=== PATIENT | male | born 1960 | race Caucasian/White ===

== ENCOUNTER 2024-04-10 12:28 | Inpatient (IN) | payer MEDICARE, SELFPAY ==
[2024-04-09] VITALS (10 sets, daily range): BP systolic 138–185; BP diastolic 73–108; BMI 31.3; BMI 31.1
[2024-04-09 17:19] LABS: % Basophils 0.2 % (0-2); % Immature Granulocytes 0.4 % (0-0.5); % Lymphocytes 4.5 % (20.5-51.1); % Monocytes 8.5 % (1.7-9.3); % Neutrophils 86.4 % (42.2-75.2); Absolute Immature Granulocytes 0.1 10^3/uL (0-0.05); Absolute Lymphocytes 0.8 10^3/uL (1.2-3.4); Absolute Monocytes 1.5 10^3/uL (0.1-0.6); Absolute Neutrophils 15.3 10^3/uL (1.4-6.5); Hemoglobin 14.2 g/dL (13.0-18.0); Mean Corp Hgb Conc. 36.4 g/dL (33.0-37.0); Mean Corpuscular Volume 85.2 fL (80.0-94.0); Mean Platelet Volume 10.2 fL (7.4-10.4); Nucleated Red Blood Cells % 0 % (-); Platelet Count 342 10^3/uL (130-400); Red Blood Cell Count 4.58 10^6/uL (4.70-6.10); Red Cell Dist. Width 12.8 % (11.5-14.5); White Blood Cell Count 17.7 10^3/uL (4.8-10.8)
[2024-04-09] MEDS: ZOFRAN 4 MG IV ×3 (17:29→21:27)
[2024-04-09] MEDS: PROTONIX IV 40 MG IV (17:31)
[2024-04-09] MEDS: DILAUDID 1 MG IV ×3 (17:32→23:07)
[2024-04-09 17:33] LABS: ALT (SGPT) 19 U/L (0-50); AST (SGOT) 25 U/L (17-59); Albumin 4.7 g/dl (3.5-5.0); Alkaline Phosphatase 78 U/L (38-126); Blood Urea Nitrogen 14 mg/dl (9-20); Calcium 10.4 mg/dl (8.4-10.2); Carbon Dioxide 20 mmol/L (22-30); Chloride 103 mmol/L (98-107); Estimated Creatinine Clearance 82 ml/min; Glucose 125 mg/dl (70-99); Lipase 260 U/L (23-300); Potassium 4.3 mmol/L (3.5-5.1); Sodium 138 mmol/L (135-145); Total Bilirubin 1.3 mg/dl (0.2-1.3); Total Protein 7.6 g/dl (6.3-8.2); eGFR > 60.00
[2024-04-09 17:38] LABS: Troponin I 0.014 ng/ml
[2024-04-09] MEDS: LR 1000 IV (19:16)
--- NOTE | 2024-04-09 19:16 | ED.GENMED ---
History of Present Illness
General
Chief Complaint: Abdominal Symptoms
Source: patient and family
Exam Limitations: none
Time Seen by Provider: 04/09/24 16:39
Nursing documentation reviewed up to this point in time: agreed with
History of Present Illness
History of Present Illness:
63 y/o M
ho chronic back pain on tramadol
RA on methotrexate
here with 2 days epigastirc pain that comes in waves of severe spasm with n/v
hasn't really eaten much in 2 days
pain is now constantw ith freuqent severe pain
no vomitign blood, black stool, cp, sob, diarrhea
dad had h/o pancreiatis
no alcohol abuse
Past History
Past History
ED Past Medical History: Other (Arthritis)
ED Past Surgical History: Orthopedic
Social History
Tobacco: Non-smoker
Alcohol: None
Drug: None
Personal:
Living: with family
Review of Systems
Review of Systems
Allergies reviewed?: Yes
All Other Systems: Not applicable
Phy Exam
Physical Exam
Physical Exam:
GENERAL: Alert , vomtiing, uncomfortable, moving frquently in the stretcher
EYE: pupils equal and reactive
NECK: Supple
ENT: o/p clr, dry mouth
CARDIAC: Regular rate and rhythm .
LUNGS: Clear breath sounds bilaterally, no acute respiratory distress, no wheezes/rales/rhonchi
ABDOMEN: Soft, moderate LUQ tenderness and epigastric tenderness;, no r/g, no cvat, normal bowel sounds
NEUROLOGICAL: Alert and oriented, no focal neuro deficits
SKIN: Warm and dry, skin intact.
MUSCULOSKELETAL: No edema, well perfused.
PSYCH: Normal and appropriate interaction.
Course
Orders/Labs/Results
Orders:
Orders
04/09/24 17:05
EKG [Electrocardiogram (*1)] Urgent
Reason for Study: Abdominal Pain
EKG- Treatment ONCE
IV Insert/Care/Rem.- Treatment PRN
04/09/24 17:06
Complete Blood Count/With Diff Urgent
Comprehensive Metabolic Panel Urgent
Lipase Urgent
Troponin I Urgent
04/09/24 17:22
HYDROmorphone [Dilaudid] 1 mg IV NOW STA
Ondansetron Injectable [Zofran] 4 mg IV NOW STA
Pantoprazole [Protonix IV] 40 mg IV NOW STA
04/09/24 17:38
CT Abd/Pel (IV only)-DH only Urgent
Comment:
Reason For Exam: severe upper abd pain, vomiting
04/09/24 18:27
Ondansetron Injectable [Zofran] 4 mg IV NOW STA
04/09/24 18:28
Ondansetron Injectable [Zofran] 4 mg .ROUTE .STK-MED ONE
04/09/24 18:29
HYDROmorphone [Dilaudid] 1 mg .ROUTE .STK-MED ONE
04/09/24 18:32
HYDROmorphone [Dilaudid] 1 mg IV NOW STA
04/09/24 19:14
Lactated Ringers [Lr] 1,000 ml IV BOLUS
04/09/24 19:40
Sucralfate Suspension [Carafate Suspension] 1 gm PO NOW STA
04/09/24 19:54
Admit/Transfer Patient As Directed
Co-Sign Provider:
Level of Care: Observation services
Assign to:: Medical/Surgical
Physician / Group: hospitalist
Diagnosis: duodenitis
PRN Pain Medication Management As Directed
May give lesser potent ordered pain med per pt: Yes
preference::
Protocol:: Medication orders for pain may be administered in a
manner that supports deferring to patient preference
when the pt is:
- Requesting an ordered lesser potent pain medication.
Least to most potent pain medications are defined
as: acetaminophen < NSAID < tramadol < opioids
(morphine, oxycodone, hydromorphone).
- Requesting a lesser dose of the same medication IF
ORDERED.
- Requesting a less intrusive route of administration
if both routes are prescribed by the provider (PO <
IV).
04/09/24 19:55
Code Status As Directed
Resuscitation Status: Full Code
04/09/24 21:21
Mag Hydrox/Al Hydrox/Simeth [Maalox] 30 ml PO QIDPRN PRN
Morphine Sulfate 2 mg IV Q4HPRN PRN
Ondansetron Injectable [Zofran] 4 mg IV Q6HPRN PRN
04/09/24 21:25
Morphine Sulfate 2 mg .ROUTE .STK-MED ONE
Ondansetron Injectable [Zofran] 4 mg .ROUTE .STK-MED ONE
04/09/24 22:00
Flush (0.9% Sodium Chloride) [Flush (Nss)] See Dose Instructions IV PER PROTOCOL
Tamsulosin [Flomax] 0.4 mg PO HS
04/09/24 22:06
Acetaminophen [Tylenol] 650 mg PO Q4HPRN PRN
Lactated Ringers [Lr] 1,000 ml IV 150 mls/hr
Sucralfate [Carafate] 1 gram PO ACHS
04/09/24 22:06
H. pylori Antigen, Fecal [S] Routine
Activity As Directed
Activity Level: With Assistance
Pneumatic Compression Sleeves As Directed
Type: Knee high
Stool for occult blood [Hemetest Stools] As Directed
Vital Signs As Directed
Frequency: Per unit guidelines
DX Deep Vein Thrombosis Video Routine
04/09/24 23:01
HYDROmorphone [Dilaudid] 1 mg IV NOW STA
04/10/24 01:37
Diphenhydramine [Benadryl] 25 mg IV NOW STA
04/10/24 04:14
HYDROmorphone [Dilaudid] 1 mg IV Q4HPRN PRN
04/10/24 06:44
Complete Blood Count/No Diff IN AM
Comprehensive Metabolic Panel Routine
Direct Bilirubin Routine
Hepatitis C Antibody IN AM
Lipase IN AM
Lipid Profile [Cardiovascular Evaluation] IN AM
Magnesium IN AM
04/10/24 08:00
0.9% Sodium Chloride [Nss (Preservative Free)] 10 ml IV BID
Loratadine [Claritin] 10 mg PO DAILY
Pantoprazole [Protonix IV] 40 mg IV BID
04/10/24 11:32
HYDROmorphone [Dilaudid] 1 mg IV Q3HPRN PRN
04/10/24 12:07
HydrALAZINE [Apresoline] 10 mg IV Q6HPRN PRN
04/10/24 12:26
GASTROINTESTINAL CONSULT Routine
Consulting Provider: Casandra Huang
Was physician already notified: Yes
Reason for consult: Epigastric pain, Gastritis/PUD/duodenitis?
Abnormal Lab Results
04/09/24 04/10/24
17:06 06:44
WBC 17.7 H 10^3/uL 18.2 H 10^3/uL
(4.8-10.8) (4.8-10.8)
RBC 4.58 L 10^6/uL 4.14 L 10^6/uL
(4.70-6.10) (4.70-6.10)
Hct 37.5 L %
(39.0-52.0)
MCH 31.6 H pg
(27.0-31.0)
Abs Immat Gran (auto) 0.1 H 10^3/uL
(0-0.05)
Absolute Neuts (auto) 15.3 H 10^3/uL
(1.4-6.5)
Absolute Lymphs (auto) 0.8 L 10^3/uL
(1.2-3.4)
Absolute Monos (auto) 1.5 H 10^3/uL
(0.1-0.6)
Neutrophils % 86.4 H %
(42.2-75.2)
Lymphocytes % 4.5 L %
(20.5-51.1)
Carbon Dioxide 20 L mmol/L
(22-30)
Glucose 125 H mg/dl 109 H mg/dl
(70-99) (70-99)
Calcium 10.4 H mg/dl
(8.4-10.2)
Total Cholesterol 217 H mg/dl
(50-199)
04/10/24 06:44
04/10/24 06:44
Vital Signs
Initial and Last Documented VS:
Initial Vital Signs
Temp Pulse Resp BP Pulse Ox
98.1 F 65 18 158/99 98
04/09/24 16:23 04/09/24 16:23 04/09/24 16:23 04/09/24 16:23 04/09/24 16:23
Last Documented Vital Signs
Temp Pulse Resp BP Pulse Ox
100 F 66 18 150/73 97
04/11/24 06:55 04/11/24 06:55 04/11/24 06:55 04/11/24 06:55 04/11/24 06:55
MDM/Problems Addressed
Differential Diagnosis Includes:
pancreatitis, gastritis, PUD, less likely ACS
MDM/Problems Addressed:
63 y/o M
no chronic alcohol
here with 2 days of epigsatric pain, nausea/vomiting with most anything he eat/s drinks
having spasm like pain in his LUQ
dad had h/o pancreatitis
pt doesn' thave any RF otherwise
no hematemesis
no fever/chills
pt is dry heaving, uncomfortable
mod upper abd tendenrses
ekg nonischemic
lipase normal
leukocytosis left shift 17 which couldbe related to vomiting but pt had CT scan showing duodenitis vs. pancreatitis
will admit for ivf, pain control; has required severl rounds of meds
*Critical Care Note
Total Time (30-74mins, 75-104mins- exclusive of procedures): Not Applicable
ED Attending Note
-
Portions of this chart may have been created with voice recognition software.� Occasional wrong word or��sound alike� substitutions may have occurred due to the inherent limitations of voice recognition software.
Discharge Plan
Departure
Patient Disposition: Admit
Date of Disposition: 04/09/24
Time of Disposition: 19:14
Admit to: Med/Surg
Presentation/result/management discussed w/ accepting MD/DO: Hospitalist
Condition: Fair
Covid-19: Not Applicable
Discharge Problem:
Pancreatitis, Duodenitis
Interventions
Interventions:
*Risk Screen - Suicide Last Done: 04/09/24 16:23
*General Assessment Last Done: 04/09/24 16:23
*Neglect/Abuse Screening Last Done: 04/09/24 16:23
ED- Fall Risk Assessment Last Done: 04/09/24 19:04
*ED COVID-19 Vaccine History Last Done: 04/09/24 17:00
*Nursing Disposition Last Done: 04/09/24 22:00
TQ-Wbemmz-Pbdovpcigt Assessment Last Done: 04/09/24 19:04
Discharge Date and Time
Discharge Date/Time: 04/09/24 22:34
--- NOTE | 2024-04-09 19:41 | HPS.HSE ---
Family Physician
-
Family Physician: Nehemiah Monsalve
Chief Complaint
-
Epigastric abdominal pain nausea or vomiting
History of Present Illness
This is a 63-year-old male with past medical history of rheumatoid arthritis on methotrexate, BPH and chronic back pain who presents to the emergency department with 2 days of severe epigastric pain and spasms.
Patient reports being generally healthy and in usual state of health up until 2 days ago. Just prior to that he noticed very tach semiformed stool which was unusual for him. He then soon after developed severe epigastric pain that radiates to the
bilateral upper quadrants but not to the back. It was associated with nonbilious and nonbloody emesis. He has not had any bowel movement since then and has not noticed any bloody stools. Patient reports constant known waning pain. He reports
that he is not unable to tolerate any p.o. due to intermediate nausea and vomiting with any p.o. intake. Patient denies any significant NSAID use. He takes he takes 1 dose of ibuprofen occasionally and slightly not every day. He takes tramadol
and Tylenol for his back pain and arthritis. He has been on methotrexate for years and has been no recent changes in the dose. He denies any alcohol use which he quit several years ago. He denies tobacco use. He denies any prior history of
gallstones. He reports family history of pancreatitis as well as stomach ulcers and father.
In the Emergency Department the patient was afebrile blood pressure was 150/70 with a pulse of 61. He was satting 90% on room air. He had a ECG which showed a normal sinus rhythm at a rate of 73 no ischemic changes. Troponin was negative. He had
a white count of 17,000 with a normal hemoglobin and platelet count. Chemistries were within normal limits with normal LFTs and normal lipase. The CT of the abdomen pelvis shows duodenitis with likely secondary pancreatitis or pancreatic
inflammation.
Medical History
Past Medical History
Past Medical History: Reports Other (Rheumatoid arthritis, BPH, chronic back pain)
Past Surgical History: Reports None
Social History
Tobacco: Non-smoker
Alcohol: Former
Personal:
Living: With Family
Employment: Employed
Family History
Family History: Other (Pancreatitis)
Allergies / Home Medications
Allergies reflects when Allergies were last updated in [employer]
Home Medications with original date entered in [employer]
Allergy/Medication List:
Allergies
Allergy/AdvReac Type Severity Reaction Status Date / Time
No Known Allergies Allergy Verified 04/09/24 16:23
Home Medications
Lactobac no.2-Bifidobac no.1-S. thermo 112.5 billion cell capsule (Visbiome) 1 cap PO DAILY 04/09/24
acetaminophen 500 mg tablet (Tylenol Extra Strength) 1,000 mg PO Q6HPRN PRN moderate pain 04/09/24
fexofenadine 180 mg tablet 180 mg PO DAILY 04/09/24
leucovorin calcium 5 mg tablet 15 mg PO SA 04/09/24
methotrexate sodium 2.5 mg tablet 20 mg PO SA 04/09/24
sildenafil 100 mg tablet 100 mg PO DAILYPRN PRN ed 04/09/24
tamsulosin 0.4 mg capsule 0.4 mg PO HS 04/09/24
tramadol 50 mg tablet 100 mg PO Q6HPRN PRN moderate pain 04/09/24
Review of Systems
-
History Source: Patient
Constitutional: Reports No Symptoms
EENT: Reports No Symptoms
Respiratory: Reports No Symptoms
Cardiac: Reports No Symptoms
Abdomen/GI: Reports Abdominal Pain, Nausea and Vomiting
: Reports No Symptoms
Musculoskeletal: Reports No Symptoms
Skin: Reports No Symptoms
Neurological: Reports No Symptoms
Endocrine: Reports No Symptoms
Hematologic/Lymphatic: Reports No Symptoms
Psych: Reports No Symptoms
Physical Exam
Vital Signs
Vital Signs
Temp Pulse Resp BP Pulse Ox
97.9 F 61 20 156/73 98
04/09/24 19:04 04/09/24 19:04 04/09/24 19:04 04/09/24 19:04 04/09/24 19:04
Physical Exam
General: Well Developed, Well Nourished, No Apparent Distress and Comfortable
HEENT: NormoCephalic, Anicteric, Moist mucous membranes and Atraumatic
Respiratory: Clear
Cardiac: S1/S2 and Regular Rhythm
Breast: Deferred by me
GI: Soft, Non Distended, Normal Bowel Sounds and Tender
Rectal: Deferred by Provider
Musculoskeletal: No Clubbing, No Cyanosis and No Edema
Skin: Warm
Neuro: AO x 3
Hematologic/Lymphatic: No Lymphadenopathy
Psych: Calm
Laboratory Results
-
04/09/24 17:06
04/09/24 17:06
Laboratory Results
Total Bilirubin 1.3 mg/dl (0.2-1.3) 04/09/24 17:06
AST 25 U/L (17-59) 04/09/24 17:06
ALT 19 U/L (0-50) 04/09/24 17:06
Alkaline Phosphatase 78 U/L (38-126) 04/09/24 17:06
Troponin I 0.014 ng/ml 04/09/24 17:06
Lipase 260 U/L (23-300) 04/09/24 17:06
Data Reviewed
-
CT Scan: Report Reviewed by me
Medical Tests (Nuc Med, Echo, EKG etc): Image Personally Visualized and interpreted
Lab Data: Labs Reviewed by me
Old Records: Reviewed
Impression/Plan
-
IMPRESSION:
63 y.o h/o RA on methotrexate presenting to ED with acute onset epigastric pain, nausea and vomiting. Constant, no relieving factors. H/O black stools prior to onset but non-since. No ETOH or NSAID use. No h/o stones. Labs with leukocytosis but
otherwise unremarkable. Normal lipase, lfts. CT A/P c/w mild focal pancreatitis and or duodenitis. No eosinophilia.
PLAN:
1. Abdominal pain - Suspect duodenitis vs ulcer rather than acute pancreatitis for which no obvious etiology is evident. Episode of black stools also suggest duodenal/gastric pathology. He is uncomfortable but non-toxic. HD stable and Hgb within
normal limits.
- admit to med/surg obs
- NPO for now except sips
- PPI IV bid. IV fluids and pain control with narcs
- carafate, maalox prn
- guaiac stools
- GI consultation tomorrow if no improvement
2. BPH
- continue tamsulosin
3. RA
- holding methotrexate till next week's dose
DVT PPX - SCDs
Code Status - Full Code
[2024-04-09] MEDS: MORPHINE SULFATE 2 MG IV (21:26)
[2024-04-09] MEDS: FLOMAX 0.4 MG PO (21:27)
[2024-04-09] MEDS: CARAFATE SUSPENSION 1 GM PO (21:27)
[2024-04-09] MEDS: CARAFATE 1 GRAM PO (22:34)
[2024-04-09] MEDS: LR IV (22:47)
[2024-04-10] MEDS: MORPHINE SULFATE 2 MG IV (01:26)
[2024-04-10] MEDS: BENADRYL 25 MG IV (01:45)
[2024-04-10] MEDS: ZOFRAN 4 MG IV ×3 (04:20→18:20)
[2024-04-10] MEDS: DILAUDID 1 MG IV ×6 (04:20→21:30)
[2024-04-10] MEDS: MAALOX 30 ML PO ×2 (04:34→11:17)
[2024-04-10 07:24] VITALS: BP 176/90
[2024-04-10] MEDS: CARAFATE 1 GRAM PO ×3 (07:31→16:21)
[2024-04-10] MEDS: CLARITIN 10 MG PO (07:35)
[2024-04-10] MEDS: PROTONIX IV 40 MG IV ×2 (07:36→20:26)
[2024-04-10] MEDS: NSS (PRESERVATIVE FREE) 10 ML IV ×2 (07:36→20:25)
[2024-04-10 07:37] LABS: Hematocrit 37.5 % (39.0-52.0); Hemoglobin 13.1 g/dL (13.0-18.0); Mean Corp Hgb Conc. 34.9 g/dL (33.0-37.0); Mean Corpuscular Hgb 31.6 pg (27.0-31.0); Mean Corpuscular Volume 90.6 fL (80.0-94.0); Mean Platelet Volume 10.4 fL (7.4-10.4); Platelet Count 273 10^3/uL (130-400); Red Blood Cell Count 4.14 10^6/uL (4.70-6.10); Red Cell Dist. Width 12.8 % (11.5-14.5); White Blood Cell Count 18.2 10^3/uL (4.8-10.8)
[2024-04-10] MEDS: LR 1000 IV ×3 (07:38→20:25)
[2024-04-10 08:49] LABS: ALT (SGPT) 16 U/L (0-50); AST (SGOT) 27 U/L (17-59); Albumin 4.1 g/dl (3.5-5.0); Alkaline Phosphatase 71 U/L (38-126); Blood Urea Nitrogen 12 mg/dl (9-20); Calcium 9.4 mg/dl (8.4-10.2); Carbon Dioxide 24 mmol/L (22-30); Chloride 100 mmol/L (98-107); Direct Bilirubin 0.2 mg/dl (0.0-0.4); Estimated Creatinine Clearance 82 ml/min; Glucose 109 mg/dl (70-99); HDL Cholesterol 73 mg/dl; LDL Cholesterol, Calculated 132 mg/dl; Lipase 206 U/L (23-300); Magnesium 1.6 mg/dl (1.6-2.3); Potassium 4.4 mmol/L (3.5-5.1); Sodium 138 mmol/L (135-145); Total Cholesterol 217 mg/dl (50-199); Total Protein 6.7 g/dl (6.3-8.2); Triglyceride 60 mg/dl (10-149); Very Low Density Lipoprotein 12 mg/dl (0-30); eGFR > 60.00
[2024-04-10] MEDS: TYLENOL 650 MG PO ×2 (11:56→21:37)
--- NOTE | 2024-04-10 12:07 | W.PN.HOSP.TC ---
Today's Communication/Plan
-
Continue IV PPI, trend CBC
Increase Dilaudid to every 3 hours as needed
GI consult
Assessment / Plan
Assessment / Plan
#Abdominal pain
#C/O dark stool
-Suspicion for gastritis v. PUD v. duodenitis, less likely pancreatitis; lipase negative x 2, CT findings with mild findings possible pancreatitis
-He also complained of a dark bowel movement prior to admission, cannot rule out melena
-Was started on IV PPI twice daily on arrival with IVF and analgesics; also started on Maalox and Carafate
-Still has significant symptoms this morning with epigastric abdomen pain
-Stool Hemoccult test ordered, results pending
Plan
-Continue with IV PPI twice daily, Carafate, and Maalox
-NPO with small sips as tolerated
-Trend CBC, follow-up Hemoccult
-Increase Dilaudid to every 3 hours as needed
-Avoid NSAIDs, chemical DVT prophylaxis
-GI consult
#Leukocytosis
-Suspect this is reactive to ongoing intraabdominal inflammation
-White cell count here has been 17 and 18 on 2 draws, no fevers recorded
-Will continue to trend CBC and temperature curve
-No indication for antibiotics as of now
#Elevated blood pressure without diagnosis of hypertension
-Blood pressure elevated here likely in the context of pain
-Not on any home antihypertensive regimen
-Ordered hydralazine PRN for SBP >180 mmHg
#Rheumatoid arthritis
-No known history of CAD or interstitial lung disease
-Home medication includes weekly methotrexate
-No signs of flare at this time
#BPH
-Medications include tamsulosin
-No signs of urinary retention as of now
DVT prophylaxis: SCDs
Diet: NPO
CODE STATUS: Full code
Anticipated Discharge: 24 - 48 hours
Subjective/Interval History
-
Date of Service: April 10, 2024
Seen and examined at the bedside. No acute events reported overnight. Hypertensive this morning though otherwise AFVSS.
Suspect his elevated blood pressure secondary to pain. States he still has a significant amount of generalized abdomen pain is worse in the epigastrium. Does have improvement with Dilaudid though feels the effects are wearing off prior to the
subsequent dose.
Denies chest pain, dyspnea, fevers or chills, nausea or vomiting, melena or hematochezia, paresthesias or weakness, urinary issues, lightheadedness
Objective Data
-
Labs:
Laboratory Results
04/10/24
06:44
WBC 18.2 H
Hgb 13.1
Hct 37.5 L
Plt Count 273 D
Sodium 138
Potassium 4.4
Chloride 100
Carbon Dioxide 24
BUN 12
Creatinine 1.0
Glucose 109 H
Calcium 9.4
Total Bilirubin 1.0
AST 27
ALT 16
Alkaline Phosphatase 71
Vital Signs:
Vital Signs
Temp Pulse Resp BP Pulse Ox
99.4 F 63 18 176/90 97
04/10/24 07:24 04/10/24 07:24 04/10/24 07:24 04/10/24 07:24 04/10/24 07:24
I&O
04/09/24 04/10/24 04/11/24
06:59 06:59 06:59
Intake Total 1000 / 1000
Output Total 400 / 400 400 / 400
Balance 600 / 600 -400 / -400
Review of Systems
-
History Source: Patient
All other systems: Reviewed and negative
Physical Exam
-
General: Well Nourished, Appears in Distress and Pain
HEENT: Normocephalic, Atraumatic and Moist Mucous Membranes
Respiratory: Clear to Auscultation and Non Labored Respirations; Negative Wheezes, Rales or Rhonchi
Cardiac: Regular Rhythm and S1/S2; Negative Murmur, Rub or Gallop
GI: Soft, Nondistended, Normal Bowel Sounds and Tender (epigastric, no R/G or rigidity)
Musculoskeletal: No Clubbing, No Cyanosis and No Edema
Skin: Warm and Dry; Negative Rash
Neuro: AO x 3, Nonfocal/Grossly Intact and Central Nerve's Intact
Psych: Calm
Data Reviewed
-
Labs: Labs Reviewed by me, Discussed with Physician (GI) and Discussed with Patient
--- NOTE | 2024-04-10 14:24 | CON.GI ---
Addendum entered and electronically signed by Casandra Huang MD 04/10/24 18:21:
I saw and examined the patient.
The resident's note was reviewed and I agree with the note.
Comment: 63-year-old male with history of rheumatoid arthritis-currently on methotrexate, history of chronic back pain on tramadol presenting with complaints of epigastric pain going on in the last few days. Reports its sharp pain without any
radiation. He had nausea and few episodes of bilious vomiting but not in the last 2 days. No heartburn or trouble swallowing. No previous similar episodes. No constipation, diarrhea, blood in the stool or black stool. Intentional weight loss of
35 pounds in the last 2 years for chronic back pain issues and was asked to lose weight. No NSAID use. History of colonoscopy 20 years ago for rectal bleeding related to hemorrhoids, denies any polyps. No history of upper endoscopies.
In the emergency room,CBC shows leukocytosis, LFTs and lipase in normal range. CT scan of the abdomen and pelvis with IV contrast only showing mild fat stranding adjacent to the uncinate process of the pancreas, focal pancreatitis versus
duodenitis. Otherwise unremarkable study. Reports spasms in the back. Intermittent fevers as per patient.
-Epigastric pain, CT showing focal pancreatitis or duodenitis ?
LFTs and lipase in normal range.
No NSAID use. No history of GI bleeding. CBC normal range.
Agree with Protonix 40 mg twice daily
Okay for clear liquid diet for now.
Given leukocytosis with reported intermittent fever, will check blood cultures to rule out any infection.
If negative, will go ahead and do an upper endoscopy to evaluate for any evidence of duodenal ulcer.
Hold off on the Carafate as it causes more constipation.
Recent constipation, will start MiraLAX. Could be related to narcotic use as well.
Original Note:
Documented by User: Chante Tristan MD, Resident 04/10/24 15:48
Consultation
-
Date/Time Consultation Requested: 04/10/24 12:26 pm
Date/Time Consultation Performed: 04/10/24 14:25 pm
Requesting Provider: Thierry Cabrera DO
Performing Provider: Chante Tristan MD
Reason for Consultation: Melena? PUD?
Medical History
Chief Complaint / HPI
Chief Complaint: Epigastric pain
History of Present Illness:
The patient is 63 year old male with a PMH of Rheumatoid arthritis, BPH, chronic back pain along scoliosis presented to ER yesterday complaining from abdominal pain and vomiting. The patient reported he started to feel sick a few days ago and had a
dark stool on . He denied having another episodes of dark stool before. he reported it was his last bowel movement. He reported he did not eat anything to maintain bowel movements. He reported having colonoscopy about 20 years ago in this
hospital and hemorrhoids were found at that time, and he had pain on his abdomen the following day and it gradually increased and he also vomited at the same time. The patient points his pain on the upper mid abdominal area. He denied vomiting
blood and reports he vomited light yellow colored fluid. He denied further vomiting episode/any bowel movement since he was admitted to the hospital. Patient reports his pain level was 10/10 when he was at ED and he rates his pain as 7/10 this
afternoon. Denies any NSAI or anti-coagulant use. Reports he has on-off symptoms of acid reflux and having Tums helped him to reveal his reflux. He denies any alcohol use which he quit several years ago. He denies tobacco use. He denies any
prior history of gallstones. He reports family history of pancreatitis as well as stomach ulcers with his father.
Past Medical History
Past Medical History: Other (Rheumatoid arthritis, BPH, chronic back pain)
Past Surgical History: Other (Bilatreal Knee artroplasty, right hip and shoulder artroplasty )
Social History
Tobacco: Non-Smoker
Alcohol: Former
Drug: None
Personal:
Living: With Family
Employment: Employed
Family History
Family History: Other (family history of pancreatitis as well as stomach ulcers)
Allergies / Home Medications
Allergy/AdvReac Type Severity Reaction Status Date / Time
No Known Allergies Allergy Verified 04/09/24 16:23
�Medication �Instructions �Recorded
Lactobac no.2-Bifidobac no.1-S. 1 cap PO DAILY Supplement 04/09/24
thermo 112.5 billion cell capsule
(Visbiome)
acetaminophen 500 mg tablet 1,000 mg PO Q6HPRN PRN moderate 04/09/24
(Tylenol Extra Strength) pain
fexofenadine 180 mg tablet 180 mg PO DAILY Allergies 04/09/24
leucovorin calcium 5 mg tablet 15 mg PO SA RESCUE 04/09/24
methotrexate sodium 2.5 mg tablet 20 mg PO SA CHEMO 04/09/24
sildenafil 100 mg tablet 100 mg PO DAILYPRN PRN ed 04/09/24
tamsulosin 0.4 mg capsule 0.4 mg PO HS Fluid 04/09/24
Retention/Swelling
tramadol 50 mg tablet 100 mg PO Q6HPRN PRN moderate pain 04/09/24
Review of Systems
-
History Source: Patient
Constitutional: Reports Other
EENT: Reports No Symptoms
Respiratory: Reports No Symptoms
Cardiac: Reports No Symptoms
Abdomen/GI: Reports Black Stools (3 days ago for one episode ) and Pain
: Reports No Symptoms
Musculoskeletal: Reports Joint Pain (hx of RA )
Skin: Reports No Symptoms
Neurological: Reports No Symptoms
Vital Signs
Temp Pulse Resp BP Pulse Ox
99.4 F 63 18 176/90 97
04/10/24 07:24 04/10/24 07:24 04/10/24 07:24 04/10/24 07:24 04/10/24 07:24
Physical Exam
Exam
General: Well Developed, Well Nourished and Pain
HEENT: Normocephalic, Anicteric and Moist Mucous Membranes
Respiratory: Clear
Cardiac: S1/S2 and Regular Rhythm
GI: Non Distended and Tender (Mildy tender to palpate at the mid abdominal area. Point mid area pain and shows his pain radiating around )
Musculoskeletal: No Clubbing and No Cyanosis
Skin: Warm
Neuro: Awake, Alert, Oriented and AO x 3
Results
WBC 18.2 10^3/uL (4.8-10.8) H 04/10/24 06:44
Hgb 13.1 g/dL (13.0-18.0) 04/10/24 06:44
Hct 37.5 % (39.0-52.0) L 04/10/24 06:44
MCV 90.6 fL (80.0-94.0) 04/10/24 06:44
Plt Count 273 10^3/uL (130-400) D 04/10/24 06:44
Absolute Neuts (auto) 15.3 10^3/uL (1.4-6.5) H 04/09/24 17:06
Sodium 138 mmol/L (135-145) 04/10/24 06:44
Potassium 4.4 mmol/L (3.5-5.1) 04/10/24 06:44
Chloride 100 mmol/L (98-107) 04/10/24 06:44
Carbon Dioxide 24 mmol/L (22-30) 04/10/24 06:44
BUN 12 mg/dl (9-20) 04/10/24 06:44
Creatinine 1.0 mg/dL (0.7-1.3) 04/10/24 06:44
Calcium 9.4 mg/dl (8.4-10.2) 04/10/24 06:44
Total Bilirubin 1.0 mg/dl (0.2-1.3) 04/10/24 06:44
AST 27 U/L (17-59) 04/10/24 06:44
ALT 16 U/L (0-50) 04/10/24 06:44
Alkaline Phosphatase 71 U/L (38-126) 04/10/24 06:44
Lipase 206 U/L (23-300) 04/10/24 06:44
Diagnostic Image Results:
Abd/Pelvis CT 04/09/24
IMPRESSION:
1. Mild fat stranding adjacent to the uncinate process of pancreas, which may represent mild focal pancreatitis, or duodenitis.
2. Reticular interstitial thickening at the lung bases, suggestive of mild interstitial fibrosis.
Prior GI Procedures: Reports None
EGD: No Known EGD
Colonoscopy: Per patient report, he had one 20 years ago and reports showed only hemoorhoids.
Assessment / Plan
-
Impression: The patient is a 63 year old male with a family history of pancreatitis and stomach ulcer presented to ER complaining from severe epigastric pain. He also reported having black stool before his admission to the hospital and denied
hematemesis. He denies alcohol use and NSAI use. He endorses having acid reflux symptoms on-off and taking Tums for it. He denies having similar previous symptoms with dark stool and epigastric pain. Hia abdominal CT showed:' Mild fat stranding
adjacent to the uncinate process of pancreas, which may represent mild focal pancreatitis, or duodenitis' He was consulted to GI team to be assessed for a possible GI bleeding and PUD.
Assessment/Plan:
#Epigastric pain due pancreatitis vs PUD vs gastritis/duodenitis
-Continue with IV PPI twice daily, Carafate, and Maalox
-Stool Hemoccult test ordered, results pending: No bowel movement yet
-Trend hgb/trending down: from 14.2 on 04/09 to 13.1 on 04/10
-Less likely GI bleeding /BUN 12
-Continue pain control with narcs avoid NSAI
-Keep NPO
-Endoscopy can be considered due ongoing epigastric pain
-
-
Thank you for consultation and allowing me to participate in the patient's care. Please call the solutions delivery consultant GI physician during the after hours with any questions or concerns.

Documented by User: Casandra Huang MD 04/10/24 18:13
Assessment / Plan
-
Impression: The patient is a 63 year old male with a family history of pancreatitis and stomach ulcer presented to ER complaining from severe epigastric pain. He also reported having black stool before his admission to the hospital and denied
hematemesis. He denies alcohol use and NSAI use. He endorses having acid reflux symptoms on-off and taking Tums for it. He denies having similar previous symptoms with dark stool and epigastric pain. Hia abdominal CT showed:' Mild fat stranding
adjacent to the uncinate process of pancreas, which may represent mild focal pancreatitis, or duodenitis' He was consulted to GI team to be assessed for a possible GI bleeding and PUD.
Assessment/Plan:
#Epigastric pain due pancreatitis vs PUD vs gastritis/duodenitis
-Continue with IV PPI twice daily, Carafate, and Maalox
-Stool Hemoccult test ordered, results pending: No bowel movement yet
-Trend hgb/trending down: from 14.2 on 04/09 to 13.1 on 04/10
-Less likely GI bleeding /BUN 12
-Continue pain control with narcs avoid NSAI
-Keep NPO
-Endoscopy can be considered due ongoing epigastric pain
Please see note with recommendations on addendum.
[2024-04-10 15:11] VITALS: BP 169/138
[2024-04-10 16:12] VITALS: BP 137/58
[2024-04-10 19:52] LABS: Hepatitis C Antibody Negative (Negative)
[2024-04-10] MEDS: FLOMAX 0.4 MG PO (20:33)
[2024-04-10] MEDS: COMPAZINE 5 MG IV (22:04)
[2024-04-10 23:05] VITALS: BP 154/74
[2024-04-11] MEDS: ZOFRAN 4 MG IV ×3 (00:51→22:32)
[2024-04-11] MEDS: DILAUDID 1 MG IV ×7 (00:51→22:33)
[2024-04-11] MEDS: LR 1000 IV ×4 (02:51→21:26)
[2024-04-11 06:55] VITALS: BP 150/73
[2024-04-11 07:05] LABS: % Basophils 0.3 % (0-2); % Eosinophils 1.5 % (0-6); % Immature Granulocytes 0.3 % (0-0.5); % Lymphocytes 10.3 % (20.5-51.1); % Monocytes 9.4 % (1.7-9.3); % Neutrophils 78.2 % (42.2-75.2); Absolute Eosinophils 0.2 10^3/uL (0-0.7); Absolute Lymphocytes 1.4 10^3/uL (1.2-3.4); Absolute Monocytes 1.3 10^3/uL (0.1-0.6); Absolute Neutrophils 10.5 10^3/uL (1.4-6.5); Hematocrit 37.2 % (39.0-52.0); Hemoglobin 12.6 g/dL (13.0-18.0); Mean Corp Hgb Conc. 33.9 g/dL (33.0-37.0); Mean Corpuscular Hgb 30.6 pg (27.0-31.0); Mean Corpuscular Volume 90.3 fL (80.0-94.0); Mean Platelet Volume 10.4 fL (7.4-10.4); Nucleated Red Blood Cells % 0 % (-); Platelet Count 263 10^3/uL (130-400); Red Blood Cell Count 4.12 10^6/uL (4.70-6.10); White Blood Cell Count 13.5 10^3/uL (4.8-10.8)
[2024-04-11 07:31] LABS: Blood Urea Nitrogen 12 mg/dl (9-20); Calcium 9.4 mg/dl (8.4-10.2); Carbon Dioxide 27 mmol/L (22-30); Chloride 100 mmol/L (98-107); Estimated Creatinine Clearance 91 ml/min; Glucose 96 mg/dl (70-99); Potassium 4.5 mmol/L (3.5-5.1); Sodium 140 mmol/L (135-145); eGFR > 60.00
[2024-04-11] MEDS: MIRALAX 17 GRAMS PO (08:16)
[2024-04-11] MEDS: PROTONIX IV 40 MG IV ×2 (08:16→19:13)
[2024-04-11] MEDS: CLARITIN 10 MG PO (08:17)
[2024-04-11] MEDS: NSS (PRESERVATIVE FREE) 10 ML IV ×2 (08:18→19:13)
[2024-04-11] MEDS: TYLENOL 650 MG PO (10:12)
--- NOTE | 2024-04-11 12:09 | W.PN.HOSP.TC ---
Today's Communication/Plan
-
Continue with IV PPI
Trend CBC
Avoid NSAIDs and chemical DVT prophylaxis
Consider H. pylori testing
Consider endoscopy
Assessment / Plan
Assessment / Plan
#Epigastric abdominal pain
#C/O dark stool
-Differential diagnosis at this time include PUD v. Gastritis/duodenitis, dyspepsia
-less likely pancreatitis; lipase negative x 2, CT findings with mild findings possible pancreatitis
-He also complained of a dark bowel movement prior to admission, cannot rule out melena or source of UGIB
-Was started on IV PPI twice daily on arrival with IVF and analgesics; also started on Maalox and Carafate
-Stool Hemoccult test ordered, results pending though has not had bowel movement
-Pain is slightly improved today, less tenderness on exam
Plan
-Continue with IV PPI twice daily, Carafate, and Maalox
-Trend CBC and follow-up Hemoccult
-Avoid NSAIDs, chemical DVT prophylaxis
-NPO with small sips as tolerated, will consider CLD today
-Consider H. pylori testing
-Consideration for endoscopy at GI discretion
#Leukocytosis
-Suspect this is reactive to ongoing intraabdominal inflammation
-Will continue to trend CBC and temperature curve
-No indication for antibiotics as of now
-White cell count downtrending without Abx
#Elevated blood pressure without diagnosis of hypertension
-Blood pressure elevated here likely in the context of pain
-Not on any home antihypertensive regimen
-Ordered hydralazine PRN for SBP >180 mmHg
#Rheumatoid arthritis
-No known history of CAD or interstitial lung disease
-Home medication includes weekly methotrexate
-No signs of flare at this time
#BPH
-Medications include tamsulosin
-No signs of urinary retention as of now
DVT prophylaxis: SCDs
Diet: NPO
CODE STATUS: Full code
Anticipated Discharge: 24 - 48 hours
Subjective/Interval History
-
Date of Service: April 11, 2024
Seen and examined at the bedside. No acute events reported overnight. AFVSS this morning.
Leukocytosis is downtrending. Patient states his abdomen pain is still present though improved. Believes increased frequency of Dilaudid was sufficient.
He denies any chest pain, dyspnea, fevers or chills, nausea or vomiting, bleeding or bruising, paresthesias or weakness, urinary issues
Objective Data
-
Labs:
Laboratory Results
04/11/24
06:35
WBC 13.5 H
Hgb 12.6 L
Hct 37.2 L
Plt Count 263
Sodium 140
Potassium 4.5
Chloride 100
Carbon Dioxide 27
BUN 12
Creatinine 0.9
Glucose 96
Calcium 9.4
Vital Signs:
Vital Signs
Temp Pulse Resp BP Pulse Ox
100 F 66 18 150/73 97
04/11/24 06:55 04/11/24 06:55 04/11/24 06:55 04/11/24 06:55 04/11/24 06:55
I&O
04/10/24 04/11/24 04/12/24
06:59 06:59 06:59
Intake Total 1000 / 1000 4000 / 4000
Output Total 400 / 400 400 / 400
Balance 600 / 600 3600 / 3600
Review of Systems
-
History Source: Patient
All other systems: Reviewed and negative
Physical Exam
-
General: No Apparent Distress, Comfortable and Respiratory Distress
HEENT: Normocephalic, Atraumatic and Moist Mucous Membranes
Respiratory: Clear to Auscultation and Non Labored Respirations
Cardiac: Regular Rhythm and S1/S2; Negative Murmur, Rub or Gallop
GI: Soft, Nondistended, Normal Bowel Sounds, Tender (To deep epigastric palpation, no peritoneal signs) and No Hepatosplenomegaly
Musculoskeletal: No Clubbing, No Cyanosis and No Edema
Skin: Warm, Dry and Normal Turgor; Negative Rash
Neuro: AO x 3, Nonfocal/Grossly Intact and Central Nerve's Intact
Psych: Calm
Data Reviewed
-
Labs: Labs Reviewed by me, Discussed with Patient and Discussed with Family
--- NOTE | 2024-04-11 13:00 | W.PN.GI.CBS2 ---
Addendum entered and electronically signed by Connor Medina MD 04/11/24 14:46:
I saw and examined the patient.
The diploma medical assistant note was reviewed and I agree with the note.
Comment: Patient continues to have epigastric discomfort. Claims his pain is better now. Denies any nausea or vomiting. No prior EGD
plan
Clear liquid diet today. N.p.o. after midnight
Continue PPI
EGD in a.m to rule out peptic ulcer disease/duodenitis
Original Note:
Today's Communication / Plan
-
-Awaiting blood culture results
-Clear liquid diet for tonight
-Needed to be NPO at midnight
Assessment / Plan
-
Impression: The patient is a 63 year old male with a family history of pancreatitis and stomach ulcer presented to ER complaining from severe epigastric pain. He also reported having black stool before his admission to the hospital and denied
hematemesis. He denies alcohol use and NSAI use. He endorses having acid reflux symptoms on-off and taking Tums for it. He denies having similar previous symptoms with dark stool and epigastric pain.History of colonoscopy 20 years ago for rectal
bleeding related to hemorrhoids, denies any polyps. No history of upper endoscopies. In the emergency room,CBC shows leukocytosis, LFTs and lipase in normal range. His abdominal CT showed:' Mild fat stranding adjacent to the uncinate process of
pancreas, which may represent mild focal pancreatitis, or duodenitis' He was consulted to GI team to be assessed for a possible GI bleeding and PUD.
Assessment/Plan:
#Epigastric pain due pancreatitis vs PUD vs gastritis/duodenitis
-Continue with IV PPI twice daily
-Stop Carafate as it causes more constipation.
-Stool Hemoccult test ordered, results pending: No bowel movement yet
-Trend hgb/trending down: from 14.2 on 04/09 to 12.6 on 04/11
-Less likely GI bleeding /BUN 12
-Continue pain control with narcs avoid NSAI
-Started on clear liquid diet
-Endoscopy can be considered due ongoing epigastric pain : Given leukocytosis with reported intermittent fever, will check blood cultures to rule out any infection. If negative, will go ahead and do an upper endoscopy to evaluate for any evidence of
duodenal ulcer.
Subjective
Subjective
Date of Service: April 11, 2024
The patient was seen in his bed reporting he started to feel better today. He still complains from abdominal pain but reports it is less than comparing tp his presentation to ER.
Objective
Data Reviewed
Laboratory Data:
Laboratory Results
04/11/24 06:35
04/11/24 06:35
Laboratory Results
Magnesium 1.6 mg/dl (1.6-2.3) 04/10/24 06:44
Total Bilirubin 1.0 mg/dl (0.2-1.3) 04/10/24 06:44
AST 27 U/L (17-59) 04/10/24 06:44
ALT 16 U/L (0-50) 04/10/24 06:44
Alkaline Phosphatase 71 U/L (38-126) 04/10/24 06:44
Lipase 206 U/L (23-300) 04/10/24 06:44
Vital Signs and I&O:
Vital Signs
Temp Pulse Resp BP Pulse Ox
100 F 66 18 150/73 97
04/11/24 06:55 04/11/24 06:55 04/11/24 06:55 04/11/24 06:55 04/11/24 06:55
I&O
04/10/24 04/11/24 04/12/24
06:59 06:59 06:59
Intake Total 1000 / 1000 4000 / 4000
Output Total 400 / 400 400 / 400
Balance 600 / 600 3600 / 3600
Physical Exam
Physical Exam
HEENT: Anicteric and Moist mucous membranes
Cardiology: Normal Sinus Rhythm, S1 and S2
Pulmonary: Clear
GI: Soft, Non Distended and Tender (Tenderness on periumblical area and on the epigastric area. )
Extremities: No Edema and Pulses Present
Neuro: Non Focal
[2024-04-11 15:00] VITALS: BP 161/82
[2024-04-11] MEDS: MAALOX 30 ML PO (19:13)
[2024-04-11] MEDS: FLOMAX 0.4 MG PO (21:23)
[2024-04-11 23:57] VITALS: BP 131/63
[2024-04-12] MEDS: DILAUDID 1 MG IV ×2 (02:35→07:43)
[2024-04-12] MEDS: LR 1000 IV (04:05)
[2024-04-12 07:19] LABS: % Basophils 0.5 % (0-2); % Eosinophils 3.8 % (0-6); % Immature Granulocytes 0.4 % (0-0.5); % Lymphocytes 15.6 % (20.5-51.1); % Monocytes 11.8 % (1.7-9.3); % Neutrophils 67.9 % (42.2-75.2); Absolute Basophils 0.1 10^3/uL (0-0.2); Absolute Eosinophils 0.4 10^3/uL (0-0.7); Absolute Lymphocytes 1.5 10^3/uL (1.2-3.4); Absolute Monocytes 1.1 10^3/uL (0.1-0.6); Absolute Neutrophils 6.3 10^3/uL (1.4-6.5); Hematocrit 33.1 % (39.0-52.0); Hemoglobin 11.3 g/dL (13.0-18.0); Mean Corp Hgb Conc. 34.1 g/dL (33.0-37.0); Mean Corpuscular Hgb 30.7 pg (27.0-31.0); Mean Corpuscular Volume 89.9 fL (80.0-94.0); Mean Platelet Volume 10.9 fL (7.4-10.4); Nucleated Red Blood Cells % 0 % (-); Platelet Count 277 10^3/uL (130-400); Red Blood Cell Count 3.68 10^6/uL (4.70-6.10); Red Cell Dist. Width 12.9 % (11.5-14.5); White Blood Cell Count 9.3 10^3/uL (4.8-10.8)
[2024-04-12] MEDS: NSS (PRESERVATIVE FREE) 10 ML IV (07:38)
[2024-04-12] MEDS: MIRALAX 17 GRAMS PO (07:38)
[2024-04-12] MEDS: CLARITIN 10 MG PO (07:38)
[2024-04-12] MEDS: PROTONIX IV 40 MG IV (07:38)
[2024-04-12 07:42] VITALS: BP 148/71
[2024-04-12 08:08] LABS: Blood Urea Nitrogen 10 mg/dl (9-20); Calcium 8.9 mg/dl (8.4-10.2); Carbon Dioxide 31 mmol/L (22-30); Chloride 101 mmol/L (98-107); Estimated Creatinine Clearance 91 ml/min; Glucose 98 mg/dl (70-99); Potassium 4.5 mmol/L (3.5-5.1); Sodium 139 mmol/L (135-145); eGFR > 60.00
[2024-04-12 09:30] VITALS: BP 137/64; BP_SYST 12
[2024-04-12 09:41] VITALS: BP 139/68
[2024-04-12 09:45] VITALS: BP 139/68; BP 91/66; BP_SYST 12
[2024-04-12 09:52] VITALS: BP 91/66; BP_SYST 14
[2024-04-12 10:06] VITALS: BP 130/63
--- NOTE | 2024-04-12 12:07 | W.PN.HOSP.TC ---
Today's Communication/Plan
-
Full diet for lunch
PPI twice daily for 8 weeks
Follow-up with GI for biopsy results, consideration of antibiotics for H. pylori
Discharge if tolerating diet
Assessment / Plan
Assessment / Plan
#Gastritis
#Gastric ulcer without stigmata of bleed
-Status post EGD on 04/12/2024 that showed gastritis and nonbleeding ulcer; biopsies performed
-Was initially on IV PPI drip though transition to IV PPI twice daily with improvement
-Was also on symptomatic therapy with Maalox and Carafate; tolerating diet
-Hemoglobin remained stable, no hematochezia or melena while here
-Will need to follow-up with GI outpatient for H. pylori results
-Continue oral Protonix 40 mg twice daily at discharge; avoid NSAIDs
-Advised patient to return to ED for recurrence of bloody stools or melena
#Leukocytosis
-Suspect this is reactive to ongoing intraabdominal inflammation
-Resolved without antibiotics
#Elevated blood pressure without diagnosis of hypertension
-Blood pressure elevated here likely in the context of pain
-Not on any home antihypertensive regimen
-Ordered hydralazine PRN for SBP >180 mmHg
#Rheumatoid arthritis
-No known history of CAD or interstitial lung disease
-Home medication includes weekly methotrexate
-No signs of flare at this time
#BPH
-Medications include tamsulosin
-No signs of urinary retention as of now
DVT prophylaxis: SCDs
Diet: NPO
CODE STATUS: Full code
Anticipated Discharge: Today
Subjective/Interval History
-
Date of Service: April 12, 2024
Seen and examined bedside. No acute events overnight. AFVSS this morning.
EGD was performed this morning and showed evidence of gastritis, small peptic ulcer with no signs of recent bleeding stigmata.
Symptomatically he states he feels much better today, minimal abdomen pain. Denies any other acute complaints as well
Objective Data
-
Labs:
Laboratory Results
04/12/24
06:46
WBC 9.3
Hgb 11.3 L
Hct 33.1 L
Plt Count 277
Sodium 139
Potassium 4.5
Chloride 101
Carbon Dioxide 31 H
BUN 10
Creatinine 0.9
Glucose 98
Calcium 8.9
Vital Signs:
Vital Signs
Temp Pulse Resp BP Pulse Ox
99.4 F 57 16 130/63 95
04/12/24 10:06 04/12/24 10:06 04/12/24 10:06 04/12/24 10:06 04/12/24 10:06
I&O
04/11/24 04/12/24 04/13/24
06:59 06:59 06:59
Intake Total 4000 / 4000 2460 / 2460
Output Total 400 / 400 750 / 750
Balance 3600 / 3600 1710 / 1710
Review of Systems
-
History Source: Patient
All other systems: Reviewed and negative
Physical Exam
-
General: Well Nourished, No Apparent Distress and Comfortable
HEENT: Normocephalic, Atraumatic and Moist Mucous Membranes
Respiratory: Clear to Auscultation and Non Labored Respirations
Cardiac: Regular Rhythm and S1/S2; Negative Murmur, Rub or Gallop
GI: Soft, Nontender, Nondistended and Normal Bowel Sounds
Musculoskeletal: No Clubbing, No Cyanosis, No Edema and Normal Gait & Station
Skin: Warm, Dry and Normal Turgor; Negative Rash
Neuro: AO x 3, Nonfocal/Grossly Intact and Central Nerve's Intact
Psych: Calm
Data Reviewed
-
Medical Tests (Nuc Med, Echo etc): Report Reviewed by me and Discussed with Patient
Labs: Labs Reviewed by me and Discussed with Patient
[2024-04-12] MEDS: AFLURIA (36 mos+) 2024-2025 FORMULA 0.5 ML IM (12:54)
--- NOTE | 2024-04-12 14:46 | CM ---
Late note: LUL spoke with Yonatan via telephone to review the IMM; a copy was provided as he was leaving this afternoon. Yonatan was asked about VN which he declined. His drove him home this afternoon.
Plan: Discharge to home with no needs.
== END 2024-04-12 13:13 | disposition home or self-care (01) | DRG 392 ==
LOC: 3 WEST ACU 12:28
PROVIDERS: Internal Medicine Gastroenterology; Physician Assistant; ADMITTING PHYSICIAN Internal Medicine; ATTENDING PHYSICIAN Internal Medicine; EMERGENCY PHYSICIAN Emergency Medicine; FAMILY PHYSICIAN Family Medicine; OTHER PHYSICIAN Student in an Organized Health Care Education/Training Program
PROC: 0DB68ZX Excision of Stomach, Via Natural or Artificial Opening Endoscopic, Diagnostic (ICD-10-PCS; 2024-04-12)
DX: K29.80 Duodenitis without bleeding (principal); K29.70 Gastritis, unspecified, without bleeding; Z79.631 Long term (current) use of antimetabolite agent; M06.9 Rheumatoid arthritis, unspecified; K25.9 Gastric ulcer, unspecified as acute or chronic, without hemorrhage or perforation
CPT/HCPCS: 88305; 74177; 80048; 80053; 80061; 82248; 83690; 83735; 84484; 85025; 85027; 86803; 87040; 88342; 90686; 93005; 96361; 96374; 96375; 96376; 99285; G0008; Q9967

== ENCOUNTER 2024-07-12 16:34 | Emergency (ER) | payer OTHER, SELFPAY ==
[2024-07-12 16:37] VITALS: BP 155/93
--- NOTE | 2024-07-12 16:41 | ED.GENMED ---
History of Present Illness
General
Chief Complaint: Skin Surface Trauma
Source: patient
Time Seen by Provider: 07/12/24 16:42
History of Present Illness
History of Present Illness:
63-year-old male presenting to emergency department at request of primary care provider for evaluation of a left index finger laceration sustained earlier today when he was using dog nail tremors and excellently cut his left index finger. Patient
is right-hand dominant, unsure of last tetanus vaccine, no other injuries. Primary care recommended patient come to the ER for evaluation with concern for phalanx injury.
Past History
Past History
ED Past Medical History: Other (Arthritis)
ED Past Surgical History: Orthopedic
Social History
Tobacco: Non-smoker
Alcohol: None
Drug: None
Personal:
Living: with family
Review of Systems
Review of Systems
All Other Systems: ROS reviewed and negative except as documented in HPI and ROS
Phy Exam
Physical Exam
Physical Exam:
GENERAL: Alert , in no apparent distress
EYE: conjunctiva clear
Head: Normocephalic atraumatic
NECK: Supple,
ENT: mmm.
LUNGS: no acute respiratory distress
NEUROLOGICAL: Alert and oriented
SKIN: Warm and dry, avulsion off of the tip of the left index finger without any active bleeding. No visualized bone or foreign body. Patient able to range of motion without any difficulty.
MUSCULOSKELETAL: well perfused.
PSYCH: Normal and appropriate interaction.
Scores
Heart Failure Risk
Heart Failure Risk Score: Not Applicable
Heart Score for Chest Pain Patients
STEMI patient?: Not applicable
Withdrawal Assessment of Alcohol
Withdrawal Assessment Completed?: Not applicable
Course
Orders/Labs/Results
Orders:
Orders
07/12/24 16:40
Tetanus/Diphth/Acelpertussis [Adacel] 0.5 ml IM .ONCE ONE
Vital Signs
Initial and Last Documented VS:
Initial Vital Signs
Temp Pulse Resp BP Pulse Ox
98.6 F 85 20 155/93 97
07/12/24 16:37 07/12/24 16:37 07/12/24 16:37 07/12/24 16:37 07/12/24 16:37
Last Documented Vital Signs
Temp Pulse Resp BP Pulse Ox
98.6 F 85 20 155/93 97
07/12/24 16:37 07/12/24 16:37 07/12/24 16:37 07/12/24 16:37 07/12/24 16:37
MDM/Problems Addressed
Differential Diagnosis Includes:
Skin avulsion, possibility for tuft fracture, no concern for neurovascular injury
MDM/Problems Addressed:
63-year-old male presenting to the ER for evaluation after injuring left index finger with a pair of nail cutters. Offered x-ray imaging however patient declined stating it would be unlikely to change any of his treatment plan. Information for
orthopedics was provided. Wound care provided by soaking in saline and Betadine solution. Dressing placed. Short-term course of Keflex provided. Patient otherwise stable for discharge home. Tetanus vaccine was updated.
*Pulse Oximetry
Patient hypoxic: no
*Critical Care Note
Total Time (30-74mins, 75-104mins- exclusive of procedures): Not Applicable
Data Reviewed
Further Testing Considered But Not Given:
X-ray of the left index finger
ED Attending Note
-
Portions of this chart may have been created with voice recognition software.� Occasional wrong word or��sound alike� substitutions may have occurred due to the inherent limitations of voice recognition software.
Discharge Plan
Departure
Patient Disposition: Home (Routine Discharge)
Date of Disposition: 07/12/24
Time of Disposition: 16:41
Patient with high blood pressure during this ER visit?: Yes
Discharge Problem:
Laceration of left index finger
Instructions: Wound Care (DC)
Prescriptions:
New
cephalexin 500 mg tablet
500 mg PO BID 5 Days Qty: 10 0RF
No Action
fexofenadine 180 mg Tablet
180 mg PO DAILY
tramadol 50 mg Tablet
100 mg PO Q6HPRN PRN (Reason: moderate pain)
acetaminophen [Tylenol Extra Strength] 500 mg Tablet
1,000 mg PO Q6HPRN PRN (Reason: moderate pain)
sildenafil 100 mg Tablet
100 mg PO DAILYPRN PRN (Reason: ed)
methotrexate sodium 2.5 mg Tablet
20 mg PO SA
tamsulosin 0.4 mg Capsule
0.4 mg PO HS
leucovorin calcium 5 mg Tablet
15 mg PO SA
Rx Instructions:
take 12 hours after methotrexate
Visbiome 112.5 billion cell Capsule
1 cap PO DAILY
pantoprazole 40 mg Tablet,Delayed Release (Dr/Ec)
40 mg PO BID 60 Days Qty: 120 0RF
Referrals:
Michael Crump MD [Active] - (Ortho if needed)
Interventions
Interventions:
*Risk Screen - Suicide Last Done: 07/12/24 16:40
*Nursing Disposition Last Done: 07/12/24 17:43
Discharge Date and Time
Discharge Date/Time: 07/12/24 17:44
Print Language: SYRIAC
[2024-07-12] MEDS: ADACEL 0.5 ML IM (16:44)
== END 2024-07-12 17:44 | disposition home or self-care (01) ==
LOC: EMR 16:34
PROVIDERS: EMERGENCY PHYSICIAN Emergency Medicine; FAMILY PHYSICIAN Family Medicine
DX: S61.211A Laceration without foreign body of left index finger without damage to nail, initial encounter (principal); W27.8XXA Contact with other nonpowered hand tool, initial encounter; Z23 Encounter for immunization
CPT/HCPCS: 99283; 90471; 90715

== ENCOUNTER → 2024-07-21 13:53 | Outpatient (REF) | payer OTHER, SELFPAY | LOC: HWRCS 13:53 | PROVIDERS: ATTENDING PHYSICIAN Internal Medicine Cardiovascular Disease; FAMILY PHYSICIAN Family Medicine; REFERRING PHYSICIAN Internal Medicine | DX: R42 Dizziness and giddiness (principal); R06.02 Shortness of breath; M05.9 Rheumatoid arthritis with rheumatoid factor, unspecified; Z51.81 Encounter for therapeutic drug level monitoring | CPT/HCPCS: 73110; 93306 ==

== ENCOUNTER → 2024-07-23 09:00 | Outpatient (REF) | payer OTHER, SELFPAY | LOC: RCS 09:00 | PROVIDERS: ATTENDING PHYSICIAN Internal Medicine Cardiovascular Disease; FAMILY PHYSICIAN Family Medicine | DX: R42 Dizziness and giddiness (principal); R06.02 Shortness of breath | CPT/HCPCS: 93225; 93226 ==

== ENCOUNTER 2024-09-04 06:18 | Day surgery (SDC) | payer OTHER, SELFPAY | END 2024-09-04 09:31 | disposition home or self-care (01) | LOC: GI 06:18 | PROVIDERS: ATTENDING PHYSICIAN Internal Medicine Gastroenterology | DX: D12.0 Benign neoplasm of cecum (principal); D12.2 Benign neoplasm of ascending colon; D12.3 Benign neoplasm of transverse colon; D12.5 Benign neoplasm of sigmoid colon; K57.30 Diverticulosis of large intestine without perforation or abscess without bleeding; R19.4 Change in bowel habit; K64.8 Other hemorrhoids; K29.70 Gastritis, unspecified, without bleeding; Z87.11 Personal history of peptic ulcer disease | CPT/HCPCS: 45385; 45380; 43235; 88305 ==